=== PATIENT | female | born 1975 | race American Indian/Alaskan Native ===

== ENCOUNTER 2017-06-01 07:36 | Day surgery (SDC) | payer OTHER ==
[~2017-06-01 07:36] MED LIST: TETRACAINE 0.5% OS PRN
[2017-06-01] MEDS: AK-Dilate OS SCH ×3 (10:30→10:40)
[2017-06-01] MEDS: MYDRIACYL OS SCH ×3 (10:30→10:40)
[2017-06-01] MEDS: VIGAMOX OS SCH ×3 (10:30→10:40)
--- NOTE | 2017-06-01 10:31 | Anesthesia Day of Surgery ---
Anesthesia Day of Surgery - Day of Surgery Patient Examined: Yes Patient H&P Reviewed: Yes Patient is NPO: Yes
--- NOTE | 2017-06-01 10:33 | Anesthesia Consultation ---
Anesthesia Consult and Med Hx Date of service: 06/01/17 - Airway Anesthetic Teeth Evaluation: Good ROM Head & Neck: Adequate Mental/Hyoid Distance: Adequate Mallampati Class: Class II Intubation Access Assessment: Probably Good - Pulmonary Exam CTA: Yes - Cardiac Exam Cardiac Exam: RRR - Pre-Operative Health Status ASA Pre-Surgery Classification: ASA2 Proposed Anesthetic Plan: General, MAC - Pulmonary Hx Smoking: No - Cardiovascular System Hx Hypertension: No Hx Heart Attack/AMI: No - Central Nervous System Hx Seizures: No CVA: No - Additional Comments Anesthesia Medical History Comments: Had right eye surgery last year.
[2017-06-01] MEDS ORDERED: KENALOG-40 ONE (10:51)
[2017-06-01] MEDS ORDERED: DIPRIVAN 10 MG/ML IV ONE ×2 (11:17→11:52)
[2017-06-01] MEDS ORDERED: VERSED ONE (11:28)
[2017-06-01] MEDS ORDERED: XYLOCAINE MPF 2% ONE (11:38)
[2017-06-01] MEDS ORDERED: DECADRON ONE (11:43)
[2017-06-01] MEDS ORDERED: PRED FORTE 1% OS ONE (12:32)
--- NOTE | 2017-06-01 12:37 | Operative Report ---
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 PRODUCTION CONTROL SCHEDULER SURGEON: None Lens: [id number] 20.0 D ANESTHESIA: Monitored anesthesia care in combination with topical and intracameral anesthesia because of the established specific risk of reflux, arrhythmias, or anxiety attacks associated with ocular manipulation, as well as the difficulty of the scholastic aptitude test grader to manage such potentially catastrophic events while simultaneously attempting to complete the surgical procedure and was deemed necessary for the patient's safety to have an Data Collection Specialist present during the procedure whenever possible. An Data Collection Specialist was utilized to regulate the intravenous sedation of the patient so the patient was cooperative yet not asleep in order for the patient to successfully maintain fixation of the eye on the operating light of the microscope. COMPLICATIONS: [No surgical complications] No blood loss. ALLERGIES: Sulfa PROGNOSIS: guarded INDICATIONS FOR SURGERY: The patient is undergoing surgery in the hopes of eliminating or improving these visual difficulties. PROCEDURE: After arriving at the surgery center, the patient was given topical anesthetic and dilating drops, as noted in the record. The patient was then taken into the operating room and given more anesthetic drops. The eyelids , lashes, and lid margins were scrubbed with Betadine solution, and the patient was draped. The Nurse Data Collection Specialist administered IV sedation and monitored the patient during the procedure. The eye was then fixated with a 0.12, and a stab incision was made in the peripheral clear cornea into the anterior chamber. This was made on my left side. Viscoelastic was next used to fill the anterior chamber. The eye was once again fixated with the 0.12 forceps and a keratome was used make an incision in clear cornea peripherally on my right hand side temporally. The pupil was scarred down and was about 2mm in size. Due to a small pupil size, it was deemed necessary to dilate the pupil mechanically so that the surgery could be more safely and effectively carried out. A Beehler corneal dilator was brought into the operative field and it was inserted into the keratome incision. The hook on the distal end of the dilator was used to hook the pupil in the meridian of the keratome incision and to pull the iris/pupil, which was hooked, back to the site of the keratome incisions entry into the anterior chamber. At the same time, three prongs were advanced out of the dilators tip. Each of these three prongs had a Y shaped end which was used to catch the iris at three locations (one directly opposite from the dilators tip and then one on each side almost bisecting the distance between the middle prong and the hook on the distal end of the dilator. These three prongs were advanced to the limbus. This combined action of the four points of fixation stretched the pupil open without tearing the tissue, but some mild bleeding did occur. The three prongs were retracted back into the dilator and the hook on the distal end of the dilator was turned and unhooked from the iris/pupil and the dilator was removed from the eye. The pupil remained small and flemsy so decided to place a malygyan ring then it remained dilated and the surgery was able to be carried out. The capsule forceps were used to open the central anterior capsule and then make a continuous round capsulotomy. Hydrodissection was carried out utilizing a cannula and balanced salt solution to delineate the cortical material from the capsule and the nucleus from the cortical material. The phaco tip was introduced into the eye and used to remove the anterior cortical material in the area of the capsulotomy. Then the phaco tip was buried into the nucleus, and a chopping instrument was introduced into the eye and used to provide countertraction in the nucleus between this instrument and the phaco tip fracturing the nucleus. This procedure was repeated multiple times, providing multiple small segments of the lens, and then the phaco tip was used to remove each of these segments. An I/A tip was then used to remove the remaining cortex. The anterior chamber was refilled with viscoelastic. An one-piece, acrylic intraocular lens was then placed into an inserting cartridge. The tip of the inserting cartridge was introduced into the keratome incision and into the anterior chamber. The implant was gently advanced through the cartridge and into the eye, where it unfolded, and both haptics were placed in the capsular bag, where it centered nicely and appeared to be well fixated. After placement of the intraocular lens, the malugyan ring was removed then the I~and~A handpiece was placed back into the eye and used to remove the viscoelastic, including viscoelastic that was behind the optic of the intraocular lens. The anterior chamber was then filled with balanced salt solution, and hydration of the wound was used to cause swelling of the wound and more appropriate watertight closure. Kenolog was injected in the AC and subconj. pt also receive 8mg of decadron. When the wound was found to be firm , the patient was asked to comment on how bright the light was. If there was no light perception at all or if the light was substantially dimmer than during the rest of the surgery, the amount of fluid in the eye was decompressed to lower the intraocular pressure until the patient could see the bright light again. This was done to avoid any damage or decreased blood flow to the optic nerve. MEDICATIONS APPLIED AT END OF SURGERY: One drop of Pred Forte and Vigamox The patient was given a shield to wear at night and was instructed not to rub or push on the eye. DISCHARGE SUMMARY: The patient was released in stable condition. The patient and those with the patient were given a written sheet of postoperative instructions and counseling on any abnormal laboratory studies. The patient is to see us tomorrow for follow-up in the office and is to call immediately for any difficulties. Marla Manzano M.D. Date
--- NOTE | 2017-06-01 12:39 | Short Stay Summary ---
Short Stay Documentation Date of service: 06/01/17 - History H&P: obtained from office - Allergies and Medications Current Medications: Allergies Sulfa (Sulfonamide Antibiotics) Adverse Reaction (Verified 06/01/17 10:28) Itching Home Medications Medication Instructions Recorded Confirmed Last Taken Type Difluprednate [Durezol 0.05%] 1 drop OP BID 05/30/17 06/01/17 05/31/17 History Dorzolamide HCl 10 ml OP BID 05/30/17 06/01/17 06/01/17 06:30 History Homatropine HBr 5% [Isopto 1 drops OU BID 05/30/17 05/30/17 05/31/17 History Homatropine] Active Medications Moxifloxacin HCl (Vigamox) 1 drops OS Q5MIN CADY Stop: 06/03/17 06:01 Last Admin: 06/01/17 10:40 Dose: 1 drops Phenylephrine HCl (Ak-Dilate) 1 drops OS Q5MIN CADY Stop: 06/03/17 06:01 Last Admin: 06/01/17 10:40 Dose: 1 drops Prednisolone Acetate (Pred Forte 1%) 1 drops OS Q1HR CADY Tetracaine HCl (Tetracaine 0.5%) 1 drops OS Q5M PRN PRN Reason: Analgesia Last Admin: 06/01/17 10:30 Dose: 1 drops Tropicamide (Mydriacyl) 1 drops OS Q5MIN CADY Stop: 06/03/17 06:01 Last Admin: 06/01/17 10:40 Dose: 1 drops - Brief post op/procedure progress note Date of procedure: 06/01/17 Pre-op diagnosis: cataract and post synechaie left eye Post-op diagnosis: same Procedure: Phacoemulsification with posterior synechia lysis and Kenalog injection left eye Anesthesia: MAC, local Surgeon: ROBERTO BARNES Estimated blood loss: none Pathology: none Condition: stable - Disposition Condition at discharge: Fair Disposition: DC-01 TO HOME OR SELFCARE - Discharge Diagnoses (1) Cataract associated with other syndromes Status: Resolved (2) Synechia, posterior Status: Resolved Qualifiers: Laterality: left Qualified Code(s): H21.542 - Posterior synechiae (iris), left eye (3) Synechiae of iris Status: Resolved Qualifiers: Laterality: left Qualified Code(s): H21.502 - Unspecified adhesions of iris , left eye Short Stay Discharge Plan Follow up with: ANAY MEJIA GRUBBER [Primary Care Provider] - 7 Days
[2017-06-01] MEDS ORDERED: XYLOCAINE 1% MPF 5 mL INTRAOCULA ONE (12:46)
[2017-06-01] MEDS ORDERED: VISCOAT IO ONE (12:47)
[2017-06-01] MEDS ORDERED: VISION BLUE IO ONE (12:47)
[2017-06-01] MEDS ORDERED: PRED FORTE 1% OS SCH (13:00)
[2017-06-01 13:24] VITALS: BP 121/78
--- NOTE | 2017-06-01 13:26 | Post Anesthesia Evaluation ---
- Post Anesthesia Evaluation Patient Participated: Yes Airway Patent: Yes Stable Respiratory Function: Yes Nausea/Vomiting: No Temp > 96.8F: Yes Pain Manageable: Yes Adequeate Hydration: Yes Anesthesia Complications: No Block Receding Appropriately: Not Applicable Patient on Ventilator: No
[2017-06-01] MEDS ORDERED: PRED FORTE 1% ONE (14:42)
== END 2017-06-01 13:17 | disposition home or self-care (01) ==
LOC: OR 07:36
DX: H26.8 Other specified cataract (principal); H21.542 Posterior synechiae (iris), left eye; H40.20X0 Unspecified primary angle-closure glaucoma, stage unspecified; Z88.2 Allergy status to sulfonamides; Z79.899 Other long term (current) drug therapy; Z98.890 Other specified postprocedural states
CPT/HCPCS: 66982; J1100; J2250; J2704; J3301; V2632

== ENCOUNTER 2017-12-19 05:47 | Observation (INO) | payer OTHER ==
[2017-12-19] MEDS ORDERED: ANCEF/STERILE WATER 2 GM/20 ML IV NR (06:00)
[2017-12-19] MEDS ORDERED: NACL BACTERIOSTATIC INFILTRATI ONE (06:33)
[2017-12-19] MEDS ORDERED: DIPRIVAN 10 MG/ML IV ONE (07:11)
[2017-12-19] MEDS ORDERED: SUBLIMAZE ONE (07:12)
[2017-12-19] MEDS ORDERED: NACL 0.9% 50 ML ONE (07:33)
[2017-12-19] MEDS ORDERED: MARCAINE 0.25% INFILTRATI ONE ×3 (07:33→08:27)
--- NOTE | 2017-12-19 07:33 | Anesthesia Day of Surgery ---
Anesthesia Day of Surgery - Day of Surgery Patient Examined: Yes Patient H&P Reviewed: Yes Patient is NPO: Yes
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
[2017-12-19] MEDS: LACTATED RINGERS 1,000 ML IV SCH ×2 (07:45→15:07)
[2017-12-19] MEDS ORDERED: PEPCID IV NR (08:00)
[2017-12-19] MEDS ORDERED: VERSED IV NR (08:00)
[2017-12-19] MEDS ORDERED: ZOFRAN IV PRN ×2 (08:28→11:00)
[2017-12-19] MEDS ORDERED: ZEMURON IV ONE (08:38)
[2017-12-19] MEDS ORDERED: XYLOCAINE MPF 2% ONE (08:38)
[2017-12-19] MEDS ORDERED: ROBINUL ONE (08:38)
[2017-12-19] MEDS ORDERED: DECADRON ONE (08:38)
[2017-12-19] MEDS ORDERED: NEOSTIGMINE ONE (08:39)
[2017-12-19] MEDS ORDERED: NACL 0.9% IV ONE ×3 (08:48→09:13)
[2017-12-19] MEDS ORDERED: OMNIPAQUE 300 MG/50 ML (CATH LAB) IV ONE ×3 (08:48→09:13)
--- NOTE | 2017-12-19 09:40 | Post Operative Note ---
Pre-op diagnosis: Chronic calc. cholecystitis Post-op diagnosis: same Findings: as above, non obstructing CBD stone Procedure: Laparoscopic cholecystectomy, intra op cholangiogram Anesthesia: GETA Surgeon: ANGELICA CANDELARIA Locate Technician: JOSUE CAMPUZANO Estimated blood loss: minimal Pathology: list (gallbladder) Specimen disposition: to lab Condition: stable Disposition: PACU
[2017-12-19] MEDS ORDERED: ANCEF/NS 1 GM/50 ML 1 GM/50 ML BAG IV SCH (10:00)
[2017-12-19] MEDS: SUBLIMAZE IV PRN ×2 (10:07→10:40)
[2017-12-19] MEDS ORDERED: PERCOCET 5/325 PO PRN (11:00)
--- NOTE | 2017-12-19 11:06 | Operative Report ---
PREOPERATIVE DIAGNOSIS: Chronic calculous cholecystitis, elevated liver chemistries. POSTOPERATIVE DIAGNOSIS: Chronic calculous cholecystitis, elevated liver chemistries, nonobstructing bile duct stone. OPERATIVE PROCEDURE: Laparoscopic cholecystectomy and intraoperative cholangiogram. ANESTHESIA: General endotracheal. SURGEON: Levy Reyna MD WORK FORCE ADVISOR: Dr. Dickey. INDICATIONS: A 42-year-old female patient presenting with right upper quadrant pain and elevation of AST, ALT. Had an ultrasound that showed multiple stones in the gallbladder and thickened gallbladder wall. She has undergone abdominal hysterectomy several years ago and she has a large keloidal scar at the umbilical area. FINDINGS: No adhesions to the anterior abdominal wall between the bowel loops and omentum was noted. Flimsy adhesions between the right lobe of the liver and the abdominal wall were noted. Gallbladder wall is thickened in a chronic fashion, contained multiple medium and large stones. Cystic duct is about 3 mm in diameter, bile duct is about 4-5 mm in diameter and cholangiogram showed a nonobstructing stone in the distal part of the bile duct. Cystic artery in the normal anatomic location. Visualized part of the distal part of the stomach and proximal duodenum appeared normal. DESCRIPTION OF PROCEDURE: After satisfactory induction of general endotracheal anesthesia, abdomen was prepped and draped. A right lateral incision was made because the previous history of hysterectomy and a Veress needle was inserted into the peritoneal cavity. After adequate carbon dioxide insufflation, a 5 mm trocar was inserted. Through this, a 5-mm 30-degree angle scope was placed and under direct visualization, supraumbilical midline, a 5 mm port was placed and camera was changed to this location. The other 5 mm port in the right mid abdomen and 11 mm ports were placed. Adhesions between the liver and the anterior abdominal wall were taken down using EndoShears. Gallbladder was held at the fundus and a fair amount of scar tissue around the callus triangle area was taken down exposing the bile duct and exposing the cystic duct and the junction to the bile duct. Hemostasis was quite adequate. Clips were applied to the junction of the cystic duct and the gallbladder and the cystic duct was open. Yellowish bile escaped under tension from the cystic duct. A 5-Marshallese feeding tube was inserted in the cystic duct and the cholangiogram was done, which revealed the above findings. Cholangiogram catheter was removed and clips were applied to cystic duct securely and the cystic duct was divided. Cystic artery ____ identified. Clips were applied and divided. Gallbladder was removed from the liver bed by using a hook attached to a cautery. After removal of the gallbladder, it was retrieved in an EndoCatch bag and was pulled out through the epigastric trocar. Both the skin incision needed to be extended and the fascial incision needed to be stretched and the bag was opened to deliver this long gallbladder with a thickened wall. Trocar was replaced and liver bed was irrigated with saline solution, most of solution was suctioned out. All the clips were inspected and found to be intact. Desufflation was done. All the trocars were removed under direct visualization. All the incisions were closed with 4-0 Monocryl sutures. There was minimal blood loss. She tolerated the procedure well and was transferred to postanesthesia care unit in satisfactory condition. JOB# [id number] VON/CHRISTA
[2017-12-19 11:35] LABS: INR 0.97 (0.87-1.13)
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
[2017-12-19] MEDS ORDERED: DILAUDID IV PRN (16:33)
[2017-12-19] MEDS: ceFAZolin 1 GM in NACL 0.9% 20 ML IV SCH (17:13)
[2017-12-20] MEDS: LACTATED RINGERS 1,000 ML IV SCH (01:04)
[2017-12-20] MEDS: ceFAZolin 1 GM in NACL 0.9% 20 ML IV SCH (01:07)
[2017-12-20 07:27] LABS: Alanine Aminotransferase 41 units/L (7-56); Albumin 3.3 g/dL (3.9-5); BUN/Creatinine Ratio 10; Blood Urea Nitrogen 8 mg/dL (7-17); Calcium 8.4 mg/dL (8.4-10.2); Hemolysis Index 22
[2017-12-20 07:28] LABS: Hematocrit 31.1 % (30.3-42.9); Hemoglobin 10.1 gm/dl (10.1-14.3); Mean Corpuscular HGB Conc 32 % (30-34); Mean Corpuscular Volume 80 fl (79-97); Platelet Count 134 K/mm3 (140-440); Red Blood Count 3.89 M/mm3 (3.65-5.03); Red Cell Distribution Width 17.1 % (13.2-15.2)
[2017-12-20 07:37] LABS: Mean Corpuscular Hemoglobin 26 pg (28-32)
--- NOTE | 2017-12-20 13:11 | Progress Note ---
Assessment and Plan Incisions are healing well. ERCP is pending for today. May have food after ERCP at the discretion of the silk screen printer machine. Subjective Date of service: 12/20/17 Patient Reports: Positive: other (Has a headache. No pain in incisions) Objective Vital Signs - 12hr 12/20/17 08:30 Temperature 98.4 F Pulse Rate 55 L Respiratory 15 Rate O2 Sat by Pulse 97 Oximetry - General physical appearance well developed, well nourished - Eyes PERRL - Respiratory normal expansion, normal respiratory effort - Abdomen soft, not tender, not distended, not guarding, not rigid - Labs 12/20/17 06:44 12/20/17 06:44 Diabetes panel 12/20/17 Range/Units 06:44 Sodium 138 (137-145) mmol/L Potassium 4.0 (3.6-5.0) mmol/L Chloride 103.1 (98-107) mmol/L Carbon Dioxide 25 (22-30) mmol/L BUN 8 (7-17) mg/dL Creatinine 0.8 (0.7-1.2) mg/dL Glucose 91 (65-100) mg/dL Calcium 8.4 (8.4-10.2) mg/dL AST 28 (5-40) units/L ALT 41 (7-56) units/L Alkaline Phosphatase 123 (35-129) units/L Total Protein 5.7 L (6.3-8.2) g/dL Albumin 3.3 L (3.9-5) g/dL Calcium panel 12/20/17 Range/Units 06:44 Calcium 8.4 (8.4-10.2) mg/dL Albumin 3.3 L (3.9-5) g/dL Pituitary panel 12/20/17 Range/Units 06:44 Sodium 138 (137-145) mmol/L Potassium 4.0 (3.6-5.0) mmol/L Chloride 103.1 (98-107) mmol/L Carbon Dioxide 25 (22-30) mmol/L BUN 8 (7-17) mg/dL Creatinine 0.8 (0.7-1.2) mg/dL Glucose 91 (65-100) mg/dL Calcium 8.4 (8.4-10.2) mg/dL Adrenal panel 12/20/17 Range/Units 06:44 Sodium 138 (137-145) mmol/L Potassium 4.0 (3.6-5.0) mmol/L Chloride 103.1 (98-107) mmol/L Carbon Dioxide 25 (22-30) mmol/L BUN 8 (7-17) mg/dL Creatinine 0.8 (0.7-1.2) mg/dL Glucose 91 (65-100) mg/dL Calcium 8.4 (8.4-10.2) mg/dL Total Bilirubin 1.10 (0.1-1.2) mg/dL AST 28 (5-40) units/L ALT 41 (7-56) units/L Alkaline Phosphatase 123 (35-129) units/L Total Protein 5.7 L (6.3-8.2) g/dL Albumin 3.3 L (3.9-5) g/dL
[2017-12-20] MEDS ORDERED: ZOFRAN ONE (13:27)
[2017-12-20] MEDS ORDERED: NACL 0.9% 1000 ML 1,000 ML ONE (13:28)
[2017-12-20] MEDS ORDERED: NACL 0.9% 100 ML ONE (13:45)
[2017-12-20] MEDS ORDERED: WATER FOR IRRIG STERILE IR ONE (13:45)
[2017-12-20] MEDS ORDERED: TYLENOL PO ONE (14:00)
[2017-12-20] MEDS ORDERED: NACL 0.9% 1000 ML 1,000 ML IV SCH (14:00)
[2017-12-20] MEDS ORDERED: QUELICIN ONE (14:29)
[2017-12-20] MEDS ORDERED: DIPRIVAN 10 MG/ML IV ONE ×2 (14:29)
[2017-12-20] MEDS ORDERED: ZEMURON IV ONE (14:29)
[2017-12-20] MEDS ORDERED: XYLOCAINE MPF 2% ONE (14:29)
[2017-12-20] MEDS ORDERED: SUBLIMAZE ONE (14:30)
--- NOTE | 2017-12-20 15:25 | Post Operative Note ---
Pre-op diagnosis: Choledocholithiasis Post-op diagnosis: same Findings: 1. Normal ampulla 2. PD not cannulated or injected 3. CBD not dilated (7mm) - Solitary stone in mid CBD - Sphincterotomy performed - 9mm balloon swept through x 3 with removal of stone 4. Clips in RUQ noted; prominant cystic duct but no leak Procedure: ERCP with sphincterotomy and balloon sweeping of the CBD Anesthesia: MAC Surgeon: FERMIN VU Estimated blood loss: minimal Pathology: none Specimen disposition: other (N/A) Condition: stable Disposition: floor (Recs: 1. Patient did well during the procedure; OK to advance diet and consider d/c with 4 hours if no pain or nausea. 2. No NSAIDs x 3 days. 3. No need for antibiotics since stone removed and no fever.)
--- NOTE | 2017-12-20 16:27 | Operative Report ---
PROCEDURE PERFORMED: Endoscopic retrograde cholangiopancreatography with biliary sphincterotomy and balloon sweeping of the common bile duct. PREOPERATIVE DIAGNOSIS: Choledocholithiasis. POSTOPERATIVE DIAGNOSIS: Choledocholithiasis. ENDOSCOPIST: Golden Samson MD. INSTRUMENT: Onefeat video endoscope. MEDICATIONS: General endotracheal anesthesia by Anesthesia Services. COMPLICATIONS: No apparent complications. ESTIMATED BLOOD LOSS: Minimal. SPECIMENS: None. IMPLANTS: None. ASSISTANTS: None. CONDITION AT COMPLETION: Stable. TECHNIQUE: The patient was informed of the risks and benefits of the procedure. She signed the informed consent to proceed. She was intubated and placed in the prone position. The above sedative medications were given. Her vital signs remained stable throughout the procedure. The instrument was advanced from the mouth to the ampulla under direct visualization. At that point, the bowel was insufflated. The ampulla was normal in shape and size. The pancreatic duct was not cannulated or injected during this procedure. The common bile duct was cannulated using Dreamtome and 0.035 guidewire. Cholangiogram showed no dilation and it was approximately 7 mm and there was a solitary gallstone present in the middle common bile duct. A medium sized sphincterotomy was performed and 9 mm balloon was swept 3 times through the common bile duct with removal of the gallstone and normal cholangiogram at the end of the procedure, the procedure was then terminated. FINDINGS: 1.Normal appearing ampulla. 2.The pancreatic duct was not cannulated or injected during the procedure. 3.The common bile duct was cannulated with the Dreamtome/0.035 guidewire. A. The common bile duct diameter was normal, 7 mm with a solitary filling defect consistent with a gallstone in the mid portion. B. Medium sphincterotomy was performed. C. A 9 mm balloon was swept 3 times through the common bile duct with removal of gallstones. 4.Clips noted in the right upper quadrant; there was also noted to be a prominent cystic duct, but no evidence of a bile leak. RECOMMENDATIONS: 1. The patient did well during the procedure. 2. Okay to advance the diet and consider discharge within 4 hours if no pain or nausea. 3. No aspirin products for the next 3 days. 4. No need for antibiotics since the stone was removed and the patient has no fever or markedly elevated white count. JOB# [id number] HELADIO/NTS
--- NOTE | 2017-12-21 08:05 | Fluoroscopy Report ---
FLUOROSCOPY CHOLANGIOGRAM OPERATIVE History: Biliary colic, cholelithiasis, choledocholithiasis. Findings: There are no previous exams for comparison at this facility. Fluoroscopy was provided by radiology during intraoperative cholangiogram by the surgeon. One fluoroscopic image was captured which demonstrates contrast agent within the biliary tree and descending duodenum. There is at least one filling defect in the mid to distal common bile duct consistent with a stone. Cholecystectomy changes are also noted. No evidence for biliary leak. Impression: Cholecystectomy. Choledocholithiasis.
--- NOTE | 2017-12-21 08:07 | Fluoroscopy Report ---
FLUOROSCOPY ERCP BILIARY DUCT History: Choledocholithiasis. Description of procedure: Fluoroscopy was provided by radiology during ERCP by gastroenterology. 6 fluoroscopic images were captured. The images demonstrate balloon sweep of the common bile duct to remove sludge. Sphincterotomy was performed. The pancreatic duct was not injected. Please correlate with the procedural report by Dr. adair as needed Impression: Sludge removal from the common bile duct.
[2017-12-21 13:16] VITALS: BP 107/71
--- NOTE | 2017-12-21 13:59 | Progress Note ---
Assessment and Plan - Patient Problems (1) Biliary calculus with obstruction without cholecystitis Current Visit: Yes Status: Acute Plan to address problem: doing well s/p lap choley and ERCP with sphincterotomy discharge home Subjective Date of service: 12/21/17 Patient Reports: Positive: no new complaints, feels better, tolerating a regular diet Objective Vital Signs - 12hr 12/21/17 12/21/17 12/21/17 04:47 07:10 12:25 Temperature 98.5 F 98.2 F 98.1 F Pulse Rate 65 66 68 Respiratory 18 20 16 Rate Blood Pressure 118/65 Blood Pressure 117/75 107/71 [Left] O2 Sat by Pulse 99 96 97 Oximetry 12/21/17 12:26 Temperature Pulse Rate 70 Respiratory Rate Blood Pressure Blood Pressure [Left] O2 Sat by Pulse 98 Oximetry - General physical appearance well developed, no distress - Abdomen soft, not tender, not distended, other (incisions healing well) - Labs 12/20/17 06:44 12/20/17 06:44
--- NOTE | 2017-12-21 14:04 | Discharge Summary ---
Providers - Providers Date of Admission: 12/19/17 09:40 Date of discharge: 12/21/17 Attending physician: ANGELICA CANDELARIA 12/19/17 09:40 Consult to Physician [CONS] Routine Consulting Provider: FERMIN SAMSON Reason For Exam: bile duct stone Place consult to:: [place] Notified:: DR. SAMSON If yes, spoke with:: Dr Samson Primary care physician: ANAY MEJIA Hospitalization Reason for admission: choledocholithiasis Condition: Good Procedures: lap choley with IOC ERCP with sphincterotomy Hospital course: patient admitted post lap choley with IOC for CBD stone GI consulted and underwent ERCP with stone removal tolerating diet and ambulating at time of discharge Disposition: DC-01 TO HOME OR SELFCARE - Discharge Diagnoses (1) Biliary calculus with obstruction without cholecystitis Status: Acute Core Measure Documentation - Palliative Care Palliative Care/ Comfort Measures: Not Applicable - Core Measures Any of the following diagnoses?: none Exam - Constitutional Vitals: Temp Pulse Resp BP Pulse Ox 98.1 F 70 16 107/71 98 12/21/17 12:25 12/21/17 12:26 12/21/17 12:25 12/21/17 12:25 12/21/17 12:26 General appearance: Present: no acute distress - Abdominal General gastrointestinal: Present: soft, non-tender, non-distended, other ( incisions healing) Plan Activity: no restrictions Diet: regular Wound: open to air, other (may shower) Follow up with: ANAY MEJIA NP [Primary Care Provider] - 7 Days ANGELICA CANDELARIA MD [Staff Physician] - 7 Days Prescriptions: Ibuprofen [Motrin] 800 mg PO Q8HR PRN #20 tablet PRN Reason: Pain Promethazine [Phenergan TAB] 25 mg PO Q6HR PRN #10 tab PRN Reason: Nausea
== END 2017-12-21 16:00 | disposition home or self-care (01) ==
LOC: OR 05:47 → 3B-SURG 09:40
PROVIDERS: ADMIT Surgery; ATTEND Surgery
DX: K80.01 Calculus of gallbladder with acute cholecystitis with obstruction (principal); G43.909 Migraine, unspecified, not intractable, without status migrainosus; Z90.710 Acquired absence of both cervix and uterus
CPT/HCPCS: 36415; 43262; 47563; 74300; 74328; 80053; 85027; 85610; 88304; 96374; 96375; 96376; C1726; G0378; J0330; J0690; J1100; J1170; J2250; J2405; J2704; J2710; J3010; J7030; J7120; Q9967